=== PATIENT | female | born 2005 | race Two or more races ===

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

== ENCOUNTER 2025-02-12 21:06 | Emergency (ER) | payer BC, MEDICAID ==
[~2025-02-12] VITALS: Ht 160 cm; Wt 70.6 kg
--- NOTE | 2025-02-12 22:18 | ED.PDOC ---
History of Present Illness HPI Comments 19 year old female presents to the ED for the c/c of Bilateral Flank pain w/ associated ABD pain, N/, Lower back pain, and Dysuria. Pt states that her pain started 2x weeks ago, and notes of no alleviating factors at this time. Pt states that she was seen at [facility] earlier today, and was given a Rajat ephin, and Toradol shot, but no alleviating factors. No other associated symptoms, modifiers, recent injuries or sick contacts present at this time. Chief Complaint: Flank Pain Time Seen by MD: 22:14 Primary Care Provider: NONE Reviewed Notes: Nurses Notes, Medications, Allergies Allergies: Coded Allergies: Lamotrigine (Verified Allergy, Unknown, 01/05/21) Home Meds Active Scripts Methylprednisolone (Medrol Dosepak) 4 Mg Ramakrishna, 4 MG PO UD, #21 TAB UAD Prov:BELEN HOLCOMB NP 12/10/22 Prednisone (Prednisone) 20 Mg Tab, 20 MG PO BID for 5 Days, #10 TAB 0 Refills Prov:MADDIE RITTER 12/03/22 Information Source: Patient Mode of Arrival: Ambulatory Severity: Moderate Timing: Weeks Duration: Intermittent Prehospital treatment: None Past Medical History PAST MEDICAL HISTORY: Seizures Surgical History: Denies all surgeries BOILERMAKING SUPERVISOR History: No Pertinent BOILERMAKING SUPERVISOR History Family History Family History: Family hx of heart maria fernanda Social History Smoker: Non-Smoker Alcohol: Denies ETOH Use Drugs: Denies Drug Use Lives In: Home Constitutional: denies: chills, diaphoresis, fatigue, fever, malaise, sweats, weakness, others EENTM: denies: blurred vision, double vision, ear bleeding, ear discharge, ear drainage, ear pain, ear ringing, eye pain, eye redness, hearing loss, mouth pain, mouth swelling, nasal discharge, nose bleeding, nose congestion, nose pain, photophobia, tearing, throat pain, throat swelling, voice changes, others Respiratory: denies: cough, hemoptysis, orthopnea, SOB at rest, shortness of breath, SOB with excertion, stridor, wheezing, others Cardiovascular: denies: chest pain, dizzy spells, diaphoresis, Dyspnea on exertion, edema, irregular heart beat, left arm pain, lightheadedness, palpit ations, PND, syncope, others Gastrointestinal: reports: nausea; denies: abdomen distended, abdominal pain, blood streaked bowels, constipated, diarrhea, dysphagia, difficulty swallowing, hematemesis, melena, poor appetite, poor fluid intake, rectal bleeding, rectal pain, vomiting, others Genitourinary: reports: dysuria, flank pain; denies: abnormal vagina bleeding, burning, dyspareunia, frequency, hematuria, incontinence, pain, , vagina discharge, urgency, others Neurological: denies: dizziness, fainting, headache, left sided numbness, left sided weakness, numbness, paresthesia, pre-existing deficit, right sided numbness, right sided weakness, seizure, speech problems, tingling, tremors, weakness, others Musculoskeletal: denies: back pain, gout, joint pain, joint swelling, muscle pain, muscle stiffness, neck pain, others Integumetry: denies: bruises, change in color, change in hair/nails, dryness, laceration, lesions, lumps, rash, wounds, others Allergic/Immunocompromised: denies: Difficulty Healing, Frequent Infections, Hives, Itching, others Hematologic/Lymphatic: denies: anemia, blood clots, easy bleeding, easy bruising, swollen glands, others Endocrine: denies: excessive hunger, excessive sweating, excessive thirst, excessive urination, flushing, intolerance to cold, intolerance to heat, unexplained weight gain, unexplained weight loss, others Psychiatric: denies: anxiety, bipolar disorder, depression, hopeless, panic disorder, schizophrenia, sleepless, suicidal, others All Other Systems: Reviewed and Negative Physical Exam General Appearance: Moderate Distress ([id number] distress due to flank pain concerns. Patient declined any pain medication while at the facility.), Normal HEENT: Normal ENT Inspection, Pharynx Normal, TMs Normal Neck: Full Range of Motion, Non-Tender, Normal, Normal Inspection Respiratory: Chest Non-Tender, Lungs Clear, No Accessory Muscle Use, No R espiratory Distress, Normal Breath Sounds Cardiovascular: No Edema, No JVD, No Murmur, No Gallop, Normal Peripheral Pulses, Regular Rate/Rhythm Breast Exam: Deferred Gastrointestinal: No Pulsatile Mass, Normal Bowel Sounds, Soft, Other (Bilateral CVA tenderness noted. No signs of trauma. Pain radiates into the bilateral lower abdomen.) Genitalia: Deferred Pelvic: Deferred Rectal: Deferred Extremities: No calf tenderness, Normal capillary refill, Normal inspection, Normal range of motion, Non-tender, No pedal edema Musculoskeletal : Apperance: Normal Neurologic: Alert, No Motor Deficits, Normal Affect, Normal Mood, No Sensory Deficits Cerebellar Function: Normal Reflexes: Normal Skin: Dry, Normal Color, Warm Lymphatic: No Adenopathy Was a procedure done? Was a procedure done?: No Differential Dx Considerations may include: UTI, pyelonephritis, kidney stone, musculoskeletal pain X-Ray, Labs, Meds, VS Vital Signs Date Time Temp Pulse Resp B/P (MAP) Pulse Ox O2 Delivery O2 Flow Rate FiO2 02/12/25 22:30 69 18 96 Room Air* 0 21 02/12/25 22:08 99.1 83 18 104/78 (87) 97 99.1 Lab Test 02/12/25 22:06 Range/Units Urine Color Yellow Yellow Urine Clarity Turbid H Clear Urine pH 6.0 5.0-9.0 Urine Specific [place] 1.018 1.001-1.035 Urine Protein Negative Negative Urine Ketones Negative Negative Urine Blood Negative Negative /uL Urine Nitrite Negative Negative Urine Bilirubin Negative Negative Urine Urobilinogen Normal Negative mg/dL Urine Leukocyte Esterase 3+ Negative /uL Urine RBC 3 0 - 4 /hpf Urine Microscopic WBC 22 H 0-5 /HPF Urine Squamous Epithelial Cells Mod <5 /hpf Urine Bacteria Few H None Seen /hpf Urine Hyaline Casts Few 0 - 2 /lpf Urine Glucose Normal Normal mg/dL Urine Test Negative Negative Current Medications Medications (Trade) Dose Ordered Sig/Migue Route Start Time Stop Time Status Last Admin Phenazopyridine HCl (Pyridium Tablet) 100 mg ONCE ONCE PO 02/12/25 22:15 02/12/25 22:17 DC 02/12/25 22:28 X-Ray, Labs, Meds, VS Comment All studies performed the ED were evaluated by me personally. Urinalysis confirmed a urinary tract infection. Patient was given 1st dose of antibiotics prior to discharge. Advised patient utilize antibiotics as directed until completion as well as good hydration and healthy nutrition throughout illness event. Time of 1ST Reevaluation: 23:41 Reevaluation 1ST: Improved Consultation: PCP Patient Education/Counseling: Diagnosis, Treatment, Need For Follow Up Family Education/Counseling: Diagnosis, Treatment, No Family Present SEPSIS Sepsis Screen Date sepsis recognized/suspect: Feb 12, 2025 Time Sepsis recognized/suspect: 2207 Recent Procedure: No On Antibiotic Therapy: No Respiratory Rate >20: No Heart Rate >90: No Temp<36 C (96.8 F) or >38.3 C: No SBP <90 or MAP <65 mmHG: No New Acute Mental Status Change: No Is the patient on CPAP, BIPAP,: No Physician Orders Nitrofurantoin Capsule (Macrobid) (02/12/25 23:45) Vital Signs Date Time Temp Pulse Resp B/P (MAP) Pulse Ox O2 Delivery O2 Flow Rate FiO2 02/12/25 22:30 69 18 96 Room Air* 0 21 02/12/25 22:08 99.1 83 18 104/78 (87) 97 99.1 Medications Medications Dose Ordered Sig/Migue Route Start Time Stop Time Status Last Admin Dose Admin Phenazopyridine HCl 100 mg ONCE ONCE PO 02/12/25 22:15 02/12/25 22:17 DC 02/12/25 22:28 Departure 1 Departure Time of Disposition: 23:41 Impression: Primary Impression: UTI (urinary tract infection) Disposition: HOME / SELF CARE / HOMELESS Condition: Stable Additional Instructions: Advise utilizing antibiotics as directed until completion. Additional medication as needed. Good hydration advised throughout. e-Prescriptions Ibuprofen (Ibuprofen) 600 Mg Tab 1 TAB PO Q6HP PRN, #20 TAB Prov: DIANA RAYO PAC 02/12/25 Nitrofurantoin Monohydrate Mac (Macrobid) 100 Mg Cap 100 MG PO BID for 7 Days, #14 CAP Prov: DIANA RAYO PAC 02/12/25 Discharged With: Self, Friend Critical Care Note Critical Care Time?: No Stability Stability form required: No Heart Score Heart Score: Heart Score Response (Comments) Value History N/A 0 EKG N/A 0 Age N/A 0 Risk Factors N/A 0 Troponin N/A 0 Total 0 I personally scribed for DIANA RAYO PAC ([email or web address]) on 02/12/25 at 22:18. Electronically submitted by Dawson Bryant ([email or web address]). DIANA RAYO PAC Feb 12, 2025 22:18
[2025-02-12] MEDS: PHENAZOPYRIDINE HCL 100 MG TAB PO ONE (22:28)
[2025-02-12 22:30] VITALS: PULSE 69; RESP 18; O2SAT 96
[2025-02-12 23:03] LABS: Urine Protein, UAD Negative (Negative)
[2025-02-12] MEDS ORDERED: IBUP-1454 PO (23:42)
[2025-02-12] MEDS ORDERED: NITR-87 PO (23:42)
[2025-02-13 00:03] VITALS: BP 104/78; PULSE 83; RESP 18; TEMP 99.1; O2SAT 97
== END 2025-02-13 00:22 | disposition home or self-care (01) ==
LOC: ER 21:06
DX: N39.0 Urinary tract infection, site not specified (principal); Z79.52 Long term (current) use of systemic steroids; Z88.8 Allergy status to other drugs, medicaments and biological substances
CPT/HCPCS: 81001; 81025

== ENCOUNTER 2025-05-02 18:35 | Emergency (ER) | payer BC, MEDICAID ==
[~2025-05-02] VITALS: Ht 160 cm; Wt 67.9 kg
[~2025-05-02 18:35] MED LIST changes: +IBUP-1454 PO; +NITR-87 PO
[2025-05-02 18:37] VITALS: BP 128/82; PULSE 110; RESP 18; TEMP 98.1; O2SAT 96
[2025-05-02 19:09] LABS: Hematocrit 40.2 % (36.0-46.0); Hemoglobin 13.4 g/dL (12.2-16.2); Mean Corpuscular Hemoglobin 29.7 pg (28.0-32.0); Mean Corpuscular Volume 88.9 fL (80.0-100.0); Nucleated Red Blood Cells % 0.0 %
--- NOTE | 2025-05-02 19:14 | ED.PDOC ---
History of Present Illness HPI Comments 19-year-old female who came to ER for syncope. Patient denies any medical problems. Patient unsure if she is . She was just standing up when she felt dizzy and she passed out. Denies any chest pains or shortness a breath. Patient had prior history of syncopal attacks Chief Complaint: Syncope Time Seen by MD: 19:13 Primary Care Provider: NONE Reviewed Notes: Nurses Notes Allergies: Coded Allergies: Lamotrigine (Verified Allergy, Unknown, 01/05/21) Home Meds Active Scripts Ibuprofen (Ibuprofen) 600 Mg Tab, 1 TAB PO Q6HP PRN, #20 TAB Prov:DIANA RAYO PAC 02/12/25 Nitrofurantoin Monohydrate Mac (Macrobid) 100 Mg Cap, 100 MG PO BID for 7 Days, #14 CAP Prov:DIANA RAYO PAC 02/12/25 Methylprednisolone (Medrol Dosepak) 4 Mg Ramakrishna, 4 MG PO UD, #21 TAB UAD Prov:BELEN HOLCOMB NP 12/10/22 Prednisone (Prednisone) 20 Mg Tab, 20 MG PO BID for 5 Days, #10 TAB 0 Refills Prov:MADDIE RITTER 12/03/22 Information Source: Patient Mode of Arrival: Ambulatory Severity: Moderate Timing: Minutes Duration: Minutes Past Medical History PAST MEDICAL HISTORY: Denies Surgical History: Denies all surgeries BEHAVIOR SUPPORT SPECIALIST History: No Pertinent BEHAVIOR SUPPORT SPECIALIST History Family History Family History: Family hx of heart maria fernanda Social History Smoker: Non-Smoker Alcohol: Denies ETOH Use Drugs: Denies Drug Use Lives In: Home Physical Exam General Appearance: No Apparent Distress, Normal HEENT: Normal ENT Inspection, Pharynx Normal, TMs Normal Neck: Full Range of Motion, Non-Tender, Normal, Normal Inspection Respiratory: Chest Non-Tender, Lungs Clear, No Accessory Muscle Use, No Respiratory Distress, Normal Breath Sounds Cardiovascular: No Edema, No JVD, No Murmur, No Gallop, Normal Peripheral Pulses, Regular Rate/Rhythm Breast Exam: Deferred Gastrointestinal: No Organomegaly, Non Tender, No Pulsatile Mass, Normal Bowel Sounds, Soft Genitalia: Deferred Pelvic: Deferred Rectal: Deferred Extremities: No calf tenderness, Normal capillary refill, Normal inspection, Normal range of motion, Non-tender, No pedal edema Musculoskeletal : Apperance: Normal Neurologic: Alert, insulator cutter and former II-XII nml as Tested, No Motor Deficits, Normal Affect, Normal Mood, No Sensory Deficits Cerebellar Function: Normal Reflexes: Normal Skin: Dry, Normal Color, Warm Lymphatic: No Adenopathy Was a procedure done? Was a procedure done?: No Differential Dx Considerations may include: ACS, CVA, , UTI, X-Ray, Labs, Meds, VS Vital Signs Date Time Temp Pulse Resp B/P (MAP) Pulse Ox O2 Delivery O2 Flow Rate FiO2 05/02/25 18:37 98.1 110 18 128/82 96 98.1 Lab Test 05/02/25 19:45 05/02/25 19:30 05/02/25 18:54 Range/Units Troponin I High Sensitivity 3 L < 3 L </=34 ng/L Urine Color Light-yellow Yellow Urine Clarity Clear Clear Urine pH 6.0 5.0-9.0 Urine Specific [place] 1.012 1.001-1.035 Urine Protein Negative Negative Urine Ketones Negative Negative Urine Blood Negative Negative /uL Urine Nitrite Negative Negative Urine Bilirubin Negative Negative Urine Urobilinogen Normal Negative mg/dL Urine Leukocyte Esterase 3+ Negative /uL Urine RBC 4 0 - 4 /hpf Urine Microscopic WBC 11 H 0-5 /HPF Urine Squamous Epithelial Cells Few <5 /hpf Urine Bacteria None seen None Seen /hpf Urine Glucose Normal Normal mg/dL Urine Test Positive Negative White Blood Count 10.6 4.4-10.8 10^3/uL Red Blood Count 4.52 4.0-5.20 10^6/uL Hemoglobin 13.4 12.2-16.2 g/dL Hematocrit 40.2 36.0-46.0 % Mean Corpuscular Volume 88.9 80.0-100.0 fL Mean Corpuscular Hemoglobin 29.7 28.0-32.0 pg Mean Corpuscular Hemoglobin Concent 33.4 32.0-36.0 g/dL Red Cell Distribution Width 12.1 11.8-14.3 % Platelet Count 371 140-450 10^3/uL Mean Platelet Volume 7.8 6.9-10.8 fL Neutrophils (%) (Auto) 76.5 37.0-80.0 % Lymphocytes (%) (Auto) 16.3 10.0-50.0 % Monocytes (%) (Auto) 5.9 0.0-12.0 % Eosinophils (%) (Auto) 0.5 0.0-7.0 % Basophils (%) (Auto) 0.8 0.0-2.0 % Neutrophils # (Auto) 8.1 1.6-8.6 10 ^3/uL Lymphocytes # (Auto) 1.7 0.4-5.4 10 ^3/uL Monocytes # (Auto) 0.6 0-1.3 10 ^3/uL Eosinophils # (Auto) 0 0-0.8 10 ^3/uL Basophils # (Auto) 0.1 0-0.2 10 ^3/uL Nucleated Red Blood Cells 0.0 % Sodium Level 139 136-145 mmol/L Potassium Level 4.2 3.5-5.1 mmol/L Chloride Level 103 98-107 mmol/L Carbon Dioxide Level 25 20-31 mmol/L Anion Gap 11 5-15 Blood Urea Nitrogen 8 L 9-23 mg/dL Creatinine 0.89 0.550-1.02 mg/dL Glomerular Filtration Rate Calc 96 >90 mL/min BUN/Creatinine Ratio 9.0 L 10.0-20.0 Serum Glucose 72 L 74-106 mg/dL Calcium Level 9.6 8.7-10.4 mg/dL Beta HCG, Quantitative 77864.5 H 1.5-4.2 mIU/mL Time of 1ST Reevaluation: 23:03 Reevaluation 1ST: Unchanged Patient Education/Counseling: Other (Patient eloped) Family Education/Counseling: No Family Present SEPSIS Sepsis Screen Date sepsis recognized/suspect: May 02, 2025 Time Sepsis recognized/suspect: 183 Recent Procedure: No On Antibiotic Therapy: No Respiratory Rate >20: No Heart Rate >90: Yes Temp<36 C (96.8 F) or >38.3 C: No SBP <90 or MAP <65 mmHG: No New Acute Mental Status Change: No Is the patient on CPAP, BIPAP,: No Physician Orders Electrocardigram (05/02/25 18:44) Electrocardigram (05/02/25 19:44) Electrocardigram (05/02/25 21:44) Vital Signs Date Time Temp Pulse Resp B/P (MAP) Pulse Ox O2 Delivery O2 Flow Rate FiO2 05/02/25 18:37 98.1 110 18 128/82 96 98.1 Laboratory Tests Test 05/02/25 18:54 White Blood Count 10.6 10^3/uL (4.4-10.8) Departure 1 Departure Time of Disposition: 23:02 (Patient is . Patient eloped prior to workup completion) Impression: Primary Impression: Additional Impression: Syncope and collapse Disposition: 07 LEFT AWOL/ELOPED Condition: Serious Critical Care Note Critical Care Time?: No Stability Stability form required: No I personally scribed for DARRELL GOMEZ MD ([email or web address]) on 05/02/25 at 19:14. Electronically submitted by Juan Fritz ([facility]). DARRELL GOMEZ MD May 02, 2025 19:14
[2025-05-02 19:42] LABS: Anion Gap 11 (5-15); Calcium 9.6 mg/dL (8.7-10.4); Carbon Dioxide 25 mmol/L (20-31); Chloride 103 mmol/L (98-107); Potassium 4.2 mmol/L (3.5-5.1); Sodium 139 mmol/L (136-145)
[2025-05-02 19:48] LABS: BUN/Creatinine Ratio 9.0 (10.0-20.0)
[2025-05-02 19:49] LABS: Blood Urea Nitrogen 8 mg/dL (9-23); Glucose 72 mg/dL (74-106)
[2025-05-02 20:04] LABS: Urine Protein, UAD Negative (Negative)
== END 2025-05-02 23:05 | disposition left against medical advice (07) ==
LOC: EEVIPCON 18:35 → ER 18:35
DX: Z34.90 Encounter for supervision of normal pregnancy, unspecified, unspecified trimester (principal); R55 Syncope and collapse; Z79.52 Long term (current) use of systemic steroids; Z79.899 Other long term (current) drug therapy; Z3A.01 Less than 8 weeks gestation of pregnancy
CPT/HCPCS: 36415; 80048; 81001; 81025; 84484; 84702; 85025

== ENCOUNTER 2025-05-12 09:54 | Outpatient (CLI) | payer BC, MEDICAID ==
[2025-05-12 11:01] LABS: Hematocrit 39.1 % (36.0-46.0); Hemoglobin 13.0 g/dL (12.2-16.2); Mean Corpuscular Hemoglobin 29.4 pg (28.0-32.0); Mean Corpuscular Volume 88.1 fL (80.0-100.0); Nucleated Red Blood Cells % 0.0 %
[2025-05-12 11:36] LABS: Thyroid Stimulating Hormone 1.38 uIU/mL (0.55-4.78)
[2025-05-12 11:46] LABS: Beta HCG, Quantitative 112654.3 mIU/mL (1.5-4.2)
[2025-05-12 12:08] LABS: Amphetamine Screen, Urine Neg (NEGATIVE); Barbiturate Scree,Urine Neg (NEGATIVE); Benzodiazephine Screen, Urine Neg (NEGATIVE); Cannabinoid Screen, Urine Neg (NEGATIVE); Cocaine Screen, Urine Neg (NEGATIVE); Opiate Scree,Urine Neg (NEGATIVE); Phencyclidine Screen, Urine Neg (NEGATIVE)
[2025-05-14 05:08] LABS: Chlamydia Trachomatis, NAA Negative (Negative); Neisseria gonorrhoeae, NAA Negative (Negative)
== END 2025-05-12 17:00 | disposition home or self-care (01) ==
LOC: LAB 09:54
PROVIDERS: ATTEND Obstetrics & Gynecology
DX: Z11.3 Encounter for screening for infections with a predominantly sexual mode of transmission (principal); O23.40 Unspecified infection of urinary tract in pregnancy, unspecified trimester; Z31.430 Encounter of female for testing for genetic disease carrier status for procreative management; Z3A.00 Weeks of gestation of pregnancy not specified; Z79.899 Other long term (current) drug therapy
CPT/HCPCS: 36415; 80307; 83036; 84144; 84443; 84702; 85025; 86703; 86765; 86780; 86787; 86850; 86900; 86901; 87086; 87340

== ENCOUNTER 2025-07-11 19:38 | Inpatient (IN) | payer BC, MEDICAID ==
[~2025-07-11] VITALS: Ht 160 cm; Wt 64.4 kg
[2025-07-11 20:07] LABS: Hematocrit 37.6 % (36.0-46.0); Hemoglobin 12.4 g/dL (12.2-16.2); Mean Corpuscular Hemoglobin 29.1 pg (28.0-32.0); Mean Corpuscular Volume 88.1 fL (80.0-100.0); Nucleated Red Blood Cells % 0.0 %
[2025-07-11 20:24] LABS: Alanine Aminotransferase 15 U/L (7-40); Albumin 4.3 g/dL (3.2-4.8); Alkaline Phosphatase 45 U/L (46-116); Anion Gap 6 (5-15); BUN/Creatinine Ratio 6.3 (10.0-20.0); Bilirubin, Total 0.4 mg/dL (0.2-1.0); Blood Urea Nitrogen < 5 mg/dL (9-23); Calcium 9.6 mg/dL (8.7-10.4); Carbon Dioxide 26 mmol/L (20-31); Chloride 107 mmol/L (98-107); Glucose 82 mg/dL (74-106); Potassium 3.7 mmol/L (3.5-5.1); Sodium 139 mmol/L (136-145); Total Protein 7.2 g/dL (5.7-8.2)
--- NOTE | 2025-07-11 20:50 | DVH ---
OB ULTRASOUND, LIMITED CLINICAL INDICATION: vag spotting, pain TECHNIQUE: Multiple grayscale ultrasound and M-mode images were obtained of the pelvis for evaluation of intrauterine . COMPARISON: None FINDINGS: A single living fetus is seen in breech presentation. Biparietal diameter: 3.14 cm (15 weeks, 6 days) Head Circumference: 11.91 cm (15 weeks, 6 days) Abdomen Circumference: 10.15 cm (16 weeks, 1 days) Femur Length: 1.9 cm (15 weeks, 4 days) Estimated weight: 138 grams (+/- 21 grams). Placenta: Posterior. Amniotic fluid: Visibly normal. heart rate: 161 beats/min. A complete anatomic survey was not performed on this exam. Cervix is 2.2 cm and closed. IMPRESSION: 1. Single living intrauterine with an estimated gestational age of 15 weeks, 6 days, corresponding to an estimated date of delivery of 12/27/2025.
--- NOTE | 2025-07-11 20:54 | ED.PDOC ---
TEACHER ADULT EDUCATION HPI Comments 19-year-old female presents to the ED for chief complaint pelvic pain that is intermittent. Patient describes pain as a cramping sensation that worsens at night and is unable to sleep due to increased pain then. Additionally, patient reports that she has experienced some brown vaginal discharge but denies any bright red or blood clot discharge. Besides the symptoms, patient reports an ongoing history of fainting episodes even prior to becoming in which she sees at [facility] about 3 times a week. She denies any recent fainting she states that she is able to easily catch herself before fainting. She denies any recent trauma, fever, chills, nausea, vomiting. She has a history of STDs many years ago but states recently got tested for them and states results came back negative. Patient also said she is having multiple syncopal episodes even prior to her that has never been worked up. She is not really bleeding but she has some brown discharge occasionally. Past medical history: Thalassemia, seizures, autoimmune disease. Past surgical history: Denies Allergies: Lamotrigine valencia: preg cramps, fainting normal exam. HPI: Poor Historian. Past Medical History: Past Surgical History: REVIEW OF SYSTEMS: CONSTITUTIONAL: Denies acute: fever, diaphoresis, chills, generalized weakness. HEAD: Denies acute: headache, photophobia Eyes: Denies acute: Double vision, vision loss, eye pain, eye discharge. EARS: Denies acute: tinnitus, hearing loss, ear discharge, ear pain, THROAT: Denies acute: sore throat, swelling, difficulty swallowing , pain with s wallowing, change in voice. NECK: Denies acute: neck pain, neck swelling, stiff neck. HEART: Denies acute : chest pain, palpitations, LUNGS: Denies acute: SOB, wheezing, cough, hemoptysis ABDOMEN: Denies acute: Nausea, Vomiting, diarrhea, melena , hematemesis, hematochezia SKIN: Denies acute: rash, redness, lesions, itchiness. EXTREMITIES: Denies acute: calf pain, numbness, tingling, weakness, denies pain in extremity. Denies acute: Low back pain. Neuro: Denies acute: focal neurological deficit, motor or sensory focal neurological deficit, tremors, seizure like activity, confusion, change in mental status, loss of bowel or bladder function, cauda equina like symptoms. : Denies acute: dysuria, hematuria, flank pain, increase in urinary frequency. PSYCH: Denies acute: hallucination, suicidal ideation, homicidal ideation. FEMALE: Denies acute: abnormal vaginal bleeding, foul odor, unusual discharge. PHYSICAL EXAM: General: ----no---acute distress, awake and alert. Head: normocephalic, atraumatic. No raccoon's eyes, no larose sign. Neck: supple, trachea is midline, no swelling. Throat: Normal phonation. Eyes:, no erythema, no purulent discharge, no proptosis, no icterus. Heart: regular rate, regular rhythm, no significant murmur appreciated. Lungs: no apparent respiratory distress, Able to speak in full sentences. No wheezing, no rhonchi, no crackles. No stridors Clear to auscultation bilaterally. Abdomen: non tender to palpation, gravid abdomen soft, no guarding, no rebound, + bowel sounds. Neuro: Awake, Alert, oriented to name, self, situation, follows commands GCS=15. Speech is normal. Skin: no petechia, no purpura, no cyanosis, non-pale, not jaundice. Lower extremities: --no - Pitting edema no deformity, no focal swelling, no calf TTP. Makes eye contact. moves all four extremities. Face: no apparent facial droop. . Ambulating in the ED independently. No nuchal rigidity, Kernig's sign, Brudzinski's sign, no meningeal signs. ED COURSE: DISCLAIMER: This medical document was created using an electronic medical record system with voice recognition software and computerized dictation system. Although this document has been carefully reviewed, there might still be some phonetic and typographical errors. Occasional wrong-word or "sound-alike" substitutions may have occurred due to the inherent limitations of voice recognition software. These areas are purely typographical due to imperfections of the software programs and do not reflect any compromise in the patient's medical care. Please read the chart carefully and recognize, using context, where these substitutions have occurred. Chief Complaint: Abdominal Pain Time Seen by MD: 20:32 Reviewed Notes: Medications, Allergies Allergies: Coded Allergies: Lamotrigine (Verified Allergy, Unknown, 01/05/21) Home Meds Active Scripts Ibuprofen (Ibuprofen) 600 Mg Tab, 1 TAB PO Q6HP PRN, #20 TAB Prov:DIANA RAYO PAC 02/12/25 Nitrofurantoin Monohydrate Mac (Macrobid) 100 Mg Cap, 100 MG PO BID for 7 Days, #14 CAP Prov:DIANA RAYO PAC 02/12/25 Methylprednisolone (Medrol Dosepak) 4 Mg Ramakrishna, 4 MG PO UD, #21 TAB UAD Prov:BELEN HOLCOMB CHILDREN COUNSELOR 12/10/22 Prednisone (Prednisone) 20 Mg Tab, 20 MG PO BID for 5 Days, #10 TAB 0 Refills Prov:MADDIE RITTER 12/03/22 Information Source: Patient Mode of Arrival: Ambulatory Was a procedure done? Was a procedure done?: No Differential Diagnosis (WASTE MACHINE OPERATOR) Vaginal Bleeding: - Complete, - Incomplete, - Inevitable, - Missed, - Threatened, Abruptio Placentae, Blood Loss Anemia, Cervicitis X-Ray, Labs, Meds, VS Vital Signs Date Time Temp Pulse Resp B/P (MAP) Pulse Ox O2 Delivery O2 Flow Rate FiO2 07/11/25 19:39 97.8 121 18 115/70 98 97.8 Lab Test 07/11/25 19:55 Range/Units White Blood Count 9.2 4.4-10.8 10^3/uL Red Blood Count 4.27 4.0-5.20 10^6/uL Hemoglobin 12.4 12.2-16.2 g/dL Hematocrit 37.6 36.0-46.0 % Mean Corpuscular Volume 88.1 80.0-100.0 fL Mean Corpuscular Hemoglobin 29.1 28.0-32.0 pg Mean Corpuscular Hemoglobin Concent 33.1 32.0-36.0 g/dL Red Cell Distribution Width 12.6 11.8-14.3 % Platelet Count 317 140-450 10^3/uL Mean Platelet Volume 7.9 6.9-10.8 fL Neutrophils (%) (Auto) 76.6 37.0-80.0 % Lymphocytes (%) (Auto) 16.0 10.0-50.0 % Monocytes (%) (Auto) 6.0 0.0-12.0 % Eosinophils (%) (Auto) 0.6 0.0-7.0 % Basophils (%) (Auto) 0.8 0.0-2.0 % Neutrophils # (Auto) 7.1 1.6-8.6 10 ^3/uL Lymphocytes # (Auto) 1.5 0.4-5.4 10 ^3/uL Monocytes # (Auto) 0.6 0-1.3 10 ^3/uL Eosinophils # (Auto) 0.1 0-0.8 10 ^3/uL Basophils # (Auto) 0.1 0-0.2 10 ^3/uL Nucleated Red Blood Cells 0.0 % Sodium Level 139 136-145 mmol/L Potassium Level 3.7 3.5-5.1 mmol/L Chloride Level 107 98-107 mmol/L Carbon Dioxide Level 26 20-31 mmol/L Anion Gap 6 5-15 Blood Urea Nitrogen < 5 L 9-23 mg/dL Creatinine 0.80 0.550-1.02 mg/dL Glomerular Filtration Rate Calc 109 >90 mL/min BUN/Creatinine Ratio 6.3 L 10.0-20.0 Serum Glucose 82 74-106 mg/dL Calcium Level 9.6 8.7-10.4 mg/dL Total Bilirubin 0.4 0.2-1.0 mg/dL Aspartate Amino Transferase (AST) 19 13-40 U/L Alanine Aminotransferase (ALT) 15 7-40 U/L Alkaline Phosphatase 45 L 46-116 U/L Total Protein 7.2 5.7-8.2 g/dL Albumin 4.3 3.2-4.8 g/dL Time of 1ST Reevaluation: 21:00 Reevaluation 1ST: Unchanged Patient Education/Counseling: Diagnosis, Treatment Family Education/Counseling: No Family Present Departure 1 Departure Time of Disposition: 22:03 Impression: Primary Impression: Syncope and collapse Additional Impression: Intrauterine Disposition: 09 ADMITTED INPATIENT Admit to: Tele Condition: Guarded Discharged With: Self Critical Care Note Critical Care Time?: No I personally scribed for ELISA LONG DO (DVFARMI) on 07/11/25 at 20:54. Electronically submitted by Melissa Davey ([facility]). ELISA LONG DO Jul 11, 2025 20:54
[2025-07-11 22:20] LABS: Urine Budding Yeast OCCASIONAL /hpf (None Seen); Urine Protein, UAD TRACE (Negative)
[2025-07-12] VITALS (7 sets, daily range): BP systolic 94–114; BP diastolic 64–75; PULSE 67–97; RESP 16–19; TEMP 97.5–98.8; O2SAT 99–100
[2025-07-12] MEDS: METRONIDAZOLE VAGINAL PV SCH (00:44)
[2025-07-12] MEDS: SODIUM CHLORIDE 0.9% 1,000 ML IV SCH (00:47)
--- NOTE | 2025-07-12 00:51 | DVHHP2 ---
History of Present Illness History of Present Illness 19-year-old female, at 15 weeks 6 days gestation, with PMHx of alpha thalassemia and seizure disorder, presenting with one day of lower abdominal cramping pain. Pain described as intermittent cramping. She reports brown vaginal discharge without foul odor. She denies vaginal bleeding, leakage of fluid, fever, chills, nausea, vomiting, dysuria, or hematuria. was known, however patient has not established routine care. History of prior sexually transmitted infection, recently treated. No prior complications. Not taking any medications. Presented with her mother. PMHx: Alpha thalassemia, seizure disorder, autoimmune disease (unspecified) PSHx: Denies Medications: None Allergies: Lamotrigine Social History: Lives with family, accompanied by mother, denies tobacco, alcohol, or illicit drug use ROS: Positive for lower abdominal pain and vaginal discharge. Otherwise negative. CBC: WBC within normal limits, Hgb 12.4 g/dL, platelets within normal limits CMP: within normal limits Urinalysis: positive leukocyte esterase, WBC present, RBC 6/hpf, few bacteria Ultrasound: single live intrauterine , estimated gestational age 15 weeks 6 days / infectious labs (05/12/2025): treponema pallidum Ab negative, chlamydia negative, gonorrhea negative, HIV negative, hepatitis B surface antigen negative, rubella IgG positive, varicella IgG non-reactive Review of Systems Allergies: Coded Allergies: Lamotrigine (Verified Allergy, Unknown, 01/05/21) Medications Current Medications Medications Dose Ordered Sig/Migue Route Start Time Stop Time Status Last Admin Dose Admin Sodium Chloride 1,000 ml @ 60 mls/hr [id number] IV 07/11/25 22:45 Ceftriaxone Sodium 50 ml @ 100 mls/hr DAILY@09 IV 07/11/25 22:45 Metronidazole 1 applic HS PV 07/11/25 22:45 Exam Vital Signs Vital Signs Date Time Temp Pulse Resp B/P (MAP) Pulse Ox O2 Delivery O2 Flow Rate FiO2 07/12/25 00:00 98.3 87 16 112/74 (87) 100 98.3 Exam Vitals: tachycardic, BP 110/75, afebrile, SpO2 normal General: alert, no acute distress CV: tachycardic, regular rhythm Pulm: clear to auscultation bilaterally Abdomen: soft, mild suprapubic tenderness, no rebound or guarding Neuro: alert and oriented, no focal deficits Labs/Xrays Labs Test 07/11/25 20:43 07/11/25 19:55 Range/Units Urine Color Colorless Yellow Urine Clarity Turbid H Clear Urine pH 7.0 5.0-9.[address] [place] 1.021 1.001-1.035 Urine Protein Trace H Negative Urine Ketones Negative Negative Urine Blood Negative Negative /uL Urine Nitrite Negative Negative Urine Bilirubin Negative Negative Urine Urobilinogen Normal Negative mg/dL Urine Leukocyte Esterase 3+ Negative /uL Urine RBC 6 0 - 4 /hpf Urine Microscopic WBC 10 H 0-5 /HPF Urine Squamous Epithelial Cells Mod <5 /hpf Urine Bacteria Few H None Seen /hpf Urine Mucus Few None Seen Urine Yeast (Budding) Occasional None Seen /hpf Urine Glucose Normal Normal mg/dL White Blood Count 9.2 4.4-10.8 10^3/uL Red Blood Count 4.27 4.0-5.20 10^6/uL Hemoglobin 12.4 12.2-16.2 g/dL Hematocrit 37.6 36.0-46.0 % Mean Corpuscular Volume 88.1 80.0-100.0 fL Mean Corpuscular Hemoglobin 29.1 28.0-32.0 pg Mean Corpuscular Hemoglobin Concent 33.1 32.0-36.0 g/dL Red Cell Distribution Width 12.6 11.8-14.3 % Platelet Count 317 140-450 10^3/uL Mean Platelet Volume 7.9 6.9-10.8 fL Neutrophils (%) (Auto) 76.6 37.0-80.0 % Lymphocytes (%) (Auto) 16.0 10.0-50.0 % Monocytes (%) (Auto) 6.0 0.0-12.0 % Eosinophils (%) (Auto) 0.6 0.0-7.0 % Basophils (%) (Auto) 0.8 0.0-2.0 % Neutrophils # (Auto) 7.1 1.6-8.6 10 ^3/uL Lymphocytes # (Auto) 1.5 0.4-5.4 10 ^3/uL Monocytes # (Auto) 0.6 0-1.3 10 ^3/uL Eosinophils # (Auto) 0.1 0-0.8 10 ^3/uL Basophils # (Auto) 0.1 0-0.2 10 ^3/uL Nucleated Red Blood Cells 0.0 % Sodium Level 139 136-145 mmol/L Potassium Level 3.7 3.5-5.1 mmol/L Chloride Level 107 98-107 mmol/L Carbon Dioxide Level 26 20-31 mmol/L Anion Gap 6 5-15 Blood Urea Nitrogen < 5 L 9-23 mg/dL Creatinine 0.80 0.550-1.02 mg/dL Glomerular Filtration Rate Calc 109 >90 mL/min BUN/Creatinine Ratio 6.3 L 10.0-20.0 Serum Glucose 82 74-106 mg/dL Calcium Level 9.6 8.7-10.4 mg/dL Total Bilirubin 0.4 0.2-1.0 mg/dL Aspartate Amino Transferase (AST) 19 13-40 U/L Alanine Aminotransferase (ALT) 15 7-40 U/L Alkaline Phosphatase 45 L 46-116 U/L Total Protein 7.2 5.7-8.2 g/dL Albumin 4.3 3.2-4.8 g/dL SEPSIS Sepsis Screen Date sepsis recognized/suspect: Jul 11, 2025 Time Sepsis recognized/suspect: 1941 Recent Procedure: No On Antibiotic Therapy: No Respiratory Rate >20: No Heart Rate >90: No Temp<36 C (96.8 F) or >38.3 C: No SBP <90 or MAP <65 mmHG: No New Acute Mental Status Change: No Is the patient on CPAP, BIPAP,: No Physician Orders Marine Service Manager (07/11/25 ) Ob Ultrasound Comp Gtr 14 Wks (07/11/25 19:48) Admit (07/11/25 22:33) Code Status (07/11/25 22:33) Vital Signs .PER UNIT PROTOCOL (07/11/25 22:33) Review Orders With Adm. (07/11/25 22:33) Regular Diet (07/12/25 Breakfast) Sodium Chloride 0.9% (07/11/25 22:45) Notify Md Of Changes From Base (07/11/25 22:33) Advance Directive (07/11/25 22:33) Blood Culture (07/11/25 22:33) Urine Bacterial Culture (07/11/25 22:33) Patient Condition (07/11/25 22:33) Allergies (12/20/25 22:33) Oxygen By Nasal Cannula (07/11/25 22:33) Stat Ekg For Chest Pain (07/11/25 22:33) Notify Md Of Changes From Base (07/11/25 22:33) Wine Sales Representative For 24 Hours (07/11/25 22:33) Emergency Dysrhythmia Protocol (07/11/25 22:33) Rhythm Strips Once Every Shift (07/11/25 22:33) Ceftriaxone 1gm/50ml (Rocephin) (07/11/25 22:45) Metronidazole Vaginal (Metrogel Vaginal) (07/11/25 22:45) * General Utility Maintenance Repairer Consultation (07/11/25 22:37) Acetaminophen Tablet (Tylenol Tablet) (07/12/25 01:00) Vital Signs Date Time Temp Pulse Resp B/P (MAP) Pulse Ox O2 Delivery O2 Flow Rate FiO2 07/12/25 00:00 98.3 87 16 112/74 (87) 100 98.3 07/11/25 19:39 97.8 121 18 115/70 98 97.8 Laboratory Tests Test 07/11/25 19:55 White Blood Count 9.2 10^3/uL (4.4-10.8) Assessment/Plan Assessment/Plan #Complicated urinary tract infection in Admit for IV -safe antibiotics ceftriaxone IV and IV fluids, follow urine culture and sensitivities, monitor vitals and clinical response, transition to oral antibiotics when appropriate. #Intrauterine at 15 weeks gestation OB-ADMIN SECRETARY consulted, ultrasound confirms viable IUP consistent with dates, counseling specialist on importance of care, arrange outpatient OB follow-up, review labs including varicella non-immunity. #Bacterial vaginosis Continue metronidazole as prescribed. #Seizure disorder Not currently on antiepileptic therapy, monitor clinically during admission, avoid lamotrigine due to allergy, recommend outpatient neurology follow-up. #Alpha thalassemia Hemoglobin stable at 12.4, monitor CBC during admission. #Autoimmune disease, unspecified Diagnosis unclear, recommend outpatient rheumatology follow-up. Case discussed with Dr Reno Full code Plan discussed with: Patient, Other (rn) My Orders Orders - TORI HERNANDEZ Procedure Category Date Status Time Admit ADMIT 07/11/25 Transmitted 22:33 Code Status CODE 07/11/25 Transmitted 22:33 Vital Signs ANDERSON 07/11/25 In Process 22:33 Review Orders With [facility] 07/11/25 In Process Adm. 22:33 Regular Diet DIET 07/12/25 Transmitted Breakfast Sodium Chloride 0.9% PHA 07/11/25 In Process 22:45 Notify Md Of Changes ANDERSON 07/11/25 In Process From Base 22:33 Advance Directive ANDERSON 07/11/25 In Process 22:33 Blood Culture LES 07/11/25 In Process 22:33 Urine Bacterial LES 07/11/25 Logged Culture 22:33 Patient Condition ORDERS 07/11/25 Transmitted 22:33 Allergies ANDERSON 07/11/25 In Process 22:33 Oxygen By Nasal RT 07/11/25 Transmitted Cannula 22:33 Stat Ekg For Chest ANDERSON 07/11/25 In Process Pain 22:33 Notify Md Of Changes ANDERSON 07/11/25 In Process From Base 22:33 Wine Sales Representative For ANDERSON 07/11/25 In Process 24 Hours 22:33 Emergency Dysrhythmia ANDERSON 07/11/25 In Process Protocol 22:33 Rhythm Strips Once ANDERSON 07/11/25 In Process Every Shift 22:33 Ceftriaxone 1gm/50ml PHA 07/11/25 In Process (Rocephin) 22:45 Metronidazole Vaginal PHA 07/11/25 In Process (Metrogel Vaginal) 22:45 * General Utility Maintenance Repairer Consultation CONS 07/11/25 Transmitted 22:37 Acetaminophen Tablet PHA 07/12/25 Verified (Tylenol Tablet) 01:00 Date of Service: Jul 11, 2025 Billing Provider: JOSE DE JESUS RENO MD Common Visit Codes: 75529-[id number] INP/OBS CARE (HIGH) Secondary Visit Codes: [id number] CARE PLAN 30 MINUTES OTRI HERNANDEZ RESIDENT Jul 12, 2025 00:51
[2025-07-12 06:00] LABS: Hematocrit 33.5 % (36.0-46.0); Hemoglobin 11.2 g/dL (12.2-16.2); Mean Corpuscular Hemoglobin 29.4 pg (28.0-32.0); Mean Corpuscular Volume 87.7 fL (80.0-100.0); Nucleated Red Blood Cells % 0.1 %
[2025-07-12 06:23] LABS: Alanine Aminotransferase 12 U/L (7-40); Albumin 3.6 g/dL (3.2-4.8); Bilirubin, Total 0.3 mg/dL (0.2-1.0); Calcium 9.0 mg/dL (8.7-10.4); Carbon Dioxide 23 mmol/L (20-31); Total Protein 6.1 g/dL (5.7-8.2)
[2025-07-12 06:26] LABS: Glucose 64 mg/dL (74-106)
[2025-07-12 06:27] LABS: Alkaline Phosphatase 41 U/L (46-116); BUN/Creatinine Ratio 7.7 (10.0-20.0); Blood Urea Nitrogen < 5 mg/dL (9-23)
[2025-07-12 06:33] LABS: Anion Gap 10 (5-15); Potassium 3.6 mmol/L (3.5-5.1); Sodium 140 mmol/L (136-145)
[2025-07-12 06:38] LABS: Chloride 107 mmol/L (98-107)
--- NOTE | 2025-07-12 14:11 | DVHPNRES ---
Progress Note Date Seen: Jul 12, 2025 Resident Creating Document: MORALES MENDENHALL RESIDENT Medical Necessity Reason Pt with a Central, PICC or Fol: No Subjective Review of Systems This is a 19-year-old female, at 15 weeks 6 days gestation past medical history of alpha thalassemia, seizure disorder not on any medication presented to ER with a complaint of lower abdominal pain, which started suddenly today associated with experienced brown vaginal discharge, nausea but no vomitus but denies any bright letter clotted but discharge. Patient known her , but did not follow-up with OBGYN. History of sexually transmitted disease untreated. Not taking on any medication and currently denies any fever, SOB, chest pain, headache, dysuria, constipation or any focal weakness. PMHx:Alpha thalassemia, seizure disorder, autoimmune disease (unspecified) PSHx:Denies Medications:None Allergies: Lamotrigine Social History: Lives with family, accompanied by mother, denies tobacco, alcohol, or illicit drug use. Patient seen and evaluated in bedside. Patient currently denies any acute distress including improving lower abdominal pain. Awaiting for urine culture sensitivity. Objective vital signs Vital Sign Date Time Temp Pulse Resp B/P (MAP) Pulse Ox O2 Delivery O2 Flow Rate FiO2 07/12/25 09:00 98.4 83 18 114/64 (81) 100 98.4 07/12/25 08:05 Room Air* 0 21 Total Intake and Output 07/11/25 07/11/25 07/12/25 15:00 23:00 07:00 Intake Total 375 ml Balance 375 ml medications Current Medications Medications Dose Ordered Sig/Migue Route Start Time Stop Time Status Last Admin Dose Admin Sodium Chloride 1,000 ml @ 60 mls/hr [id number] IV 07/11/25 22:45 07/12/25 00:47 60 MLS/HR Ceftriaxone Sodium 50 ml @ 100 mls/hr DAILY@09 IV 07/11/25 22:45 07/12/25 10:21 100 MLS/HR Metronidazole 1 applic HS PV 07/11/25 22:45 Acetaminophen 325 mg Q6HP PRN PO 07/12/25 01:00 Examination General: alert, no acute distress CV: S1-S2 audible, no murmur, regular rhythm Pulm: clear to auscultation bilaterally Abdomen: soft, mild suprapubic tenderness, no rebound or guarding Neuro: alert and oriented, no focal deficits laboratory and microbiology Laboratory Tests 07/12/25 04:50 Test 07/12/25 04:50 Range/Units Serum Glucose 64 L 74-106 mg/dL Problem List/Assessment/Plan Problem List/Assessment/Plan #Complicated urinary tract infection in UA showed turbid appearance, leukocyte esterase 3+, WBC 10, bacteria few Empiric antibiotic ceftriaxone Urine culture pending report Take fluid as tolerated Pain management #Intrauterine at 15 weeks gestation OB-BEAR KEEPER consult ultrasound confirms viable IUP consistent with dates, debt management counselor on importance of care. We will establish care OBGYN after discharge in outpatient #Bacterial vaginosis Continue metronidazole. #Seizure disorder Not currently on antiepileptic therapy. Follow-up outpatient neurology #Alpha thalassemia Hemoglobin stable at 12.4 #Autoimmune disease, unspecified Diagnosis unclear, recommend outpatient follow-up. Goals of care discussion. Full code status. More than 21 minute spent with patient. Case discussed with Dr. Tena. Plan discussed with: Patient, Other (Nurse) Visit Coding STANDARD RES Billing Provider: RIK TENA DO Date of Service if different f: Jul 12, 2025 Common Visit Codes: [id number] INP/OBS CARE(MOD) Secondary Visit Codes: [id number] CARE PLAN 30 MINUTES MORALES MENDENHALL RESIDENT Jul 12, 2025 14:11
[2025-07-12] MEDS: ACETAMINOPHEN 325 MG TAB PO PRN (21:09)
[2025-07-13] VITALS (8 sets, daily range): BP systolic 103–118; BP diastolic 58–71; PULSE 86–111; RESP 16–20; TEMP 98–98.5; O2SAT 98–100
[2025-07-13 05:58] LABS: Hematocrit 32.8 % (36.0-46.0); Hemoglobin 10.8 g/dL (12.2-16.2); Mean Corpuscular Hemoglobin 28.8 pg (28.0-32.0); Mean Corpuscular Volume 87.6 fL (80.0-100.0); Nucleated Red Blood Cells % 0.0 %
[2025-07-13 06:04] LABS: Anion Gap 8 (5-15); Carbon Dioxide 22 mmol/L (20-31); Potassium 3.8 mmol/L (3.5-5.1); Sodium 139 mmol/L (136-145)
[2025-07-13 06:07] LABS: Calcium 8.5 mg/dL (8.7-10.4); Chloride 109 mmol/L (98-107)
[2025-07-13 06:10] LABS: BUN/Creatinine Ratio 9.8 (10.0-20.0); Blood Urea Nitrogen < 5 mg/dL (9-23); Glucose 71 mg/dL (74-106)
[2025-07-13] MEDS ORDERED: CEPH250C PO (16:53)
--- NOTE | 2025-07-13 17:16 | DVHDSRES ---
Discharge Summary Date of Admission Resident Creating Document: MORALES MENDENHALL RESIDENT Jul 11, 2025 at 22:33 Date of Discharge: Jul 13, 2025 Labs/Diagnostic Data: Laboratory Results Test 07/13/25 05:10 07/12/25 04:50 07/11/25 20:43 White Blood Count 8.1 10^3/uL (4.4-10.8) Red Blood Count 3.75 10^6/uL (4.0-5.20) Hemoglobin 10.8 g/dL (12.2-16.2) Hematocrit 32.8 % (36.0-46.0) Mean Corpuscular Volume 87.6 fL (80.0-100.0) Mean Corpuscular Hemoglobin 28.8 pg (28.0-32.0) Mean Corpuscular Hemoglobin Concent 32.9 g/dL (32.0-36.0) Red Cell Distribution Width 12.6 % (11.8-14.3) Platelet Count 236 10^3/uL (140-450) Mean Platelet Volume 8.2 fL (6.9-10.8) Neutrophils (%) (Auto) 63.8 % (37.0-80.0) Lymphocytes (%) (Auto) 27.5 % (10.0-50.0) Monocytes (%) (Auto) 6.5 % (0.0-12.0) Eosinophils (%) (Auto) 1.7 % (0.0-7.0) Basophils (%) (Auto) 0.5 % (0.0-2.0) Neutrophils # (Auto) 5.2 10 ^3/uL (1.6-8.6) Lymphocytes # (Auto) 2.2 10 ^3/uL (0.4-5.4) Monocytes # (Auto) 0.5 10 ^3/uL (0-1.3) Eosinophils # (Auto) 0.1 10 ^3/uL (0-0.8) Basophils # (Auto) 0 10 ^3/uL (0-0.2) Nucleated Red Blood Cells 0.0 % Sodium Level 139 mmol/L (136-145) Potassium Level 3.8 mmol/L (3.5-5.1) Chloride Level 109 mmol/L (98-107) Carbon Dioxide Level 22 mmol/L (20-31) Anion Gap 8 (5-15) Blood Urea Nitrogen < 5 mg/dL (9-23) Creatinine 0.51 mg/dL (0.550-1.02) Glomerular Filtration Rate Calc 138 mL/min (>90) BUN/Creatinine Ratio 9.8 (10.0-20.0) Serum Glucose 71 mg/dL (74-106) Calcium Level 8.5 mg/dL (8.7-10.4) Vitamin D 25-Hydroxy 15.6 ng/mL (30.0-100) Total Bilirubin 0.3 mg/dL (0.2-1.0) Aspartate Amino Transferase (AST) 15 U/L (13-40) Alanine Aminotransferase (ALT) 12 U/L (7-40) Alkaline Phosphatase 41 U/L (46-116) Total Protein 6.1 g/dL (5.7-8.2) Albumin 3.6 g/dL (3.2-4.8) Urine Color Colorless (Yellow) Urine Clarity Turbid (Clear) Urine pH 7.0 (5.0-9.0) Urine Specific [place] 1.021 (1.001-1.035) Urine Protein Trace (Negative) Urine Ketones Negative (Negative) Urine Blood Negative /uL (Negative) Urine Nitrite Negative (Negative) Urine Bilirubin Negative (Negative) Urine Urobilinogen Normal mg/dL (Negative) Urine Leukocyte Esterase 3+ /uL (Negative) Urine RBC 6 /hpf (0 - 4) Urine Microscopic WBC 10 /HPF (0-5) Urine Squamous Epithelial Cells Mod /hpf (<5) Urine Bacteria Few /hpf (None Seen) Urine Mucus Few (None Seen) Urine Yeast (Budding) Occasional /hpf (None Urine Glucose Normal mg/dL (Normal) Other Laboratory Tests 07/13/25 05:10 Brief Hx & Hospital Course: This is a 19-year-old female, at 15 weeks 6 days gestation past medical history of alpha thalassemia, seizure disorder not on any medication presented to ER with a complaint of lower abdominal pain, which started suddenly today associated with experienced brown vaginal discharge, nausea but no vomitus but denies any bright letter clotted but discharge. Patient known her , but did not follow-up with OBGYN. History of sexually transmitted disease untreated. Not taking on any medication and currently denies any fever, SOB, chest pain, headache, dysuria, constipation or any focal weakness. PMHx:Alpha thalassemia, seizure disorder, autoimmune disease (unspecified) PSHx:Denies Medications:None Allergies: Lamotrigine Social History: Lives with family, accompanied by mother, denies tobacco, alcohol, or illicit drug use. Hospital course: Patient admitted due to complicated urinary tract infection in . UA showed turbid appearance, leukocyte esterase 3+, WBC 10, bacteria few. Patient treated IV antibiotic and her symptoms significantly improved. Patient also having brown vaginal discharge which also resolved. Patient denies any acute distress. Mother on bedside and discussed management plan and verbally agree vertebral discussed. Examination 09/11/2024, patient denies any fever, SOB, chest pain, headache, dysuria, abdominal pain or any other acute distress. OBGYN appointment made on 07/20/2025 at 1:00 p.m. p.o. Keflex antibiotic sent to pharmacy and advised patient to resume home medication. Patient is hemodynamically stable for discharge. Patient has received maximum benefit from inpatient treatment. Time was given to answer patient's questions and concerns in layman terms and explained by RN. Patient verbalized understanding and agreed with treatment and follow-up. Patient was recommended to return to ER if he experiences any worsening symptoms not limited to current symptoms. Follow-up with OBGYN appointment made on 07/20/2025 at 1:00 p.m. . Follow up outpatient surgery after getting referral from primary care for elective right-sided inguinal hernia repair. Medications sent to the pharmacy, patient advised to resume home medication. Physical examination Constitutional: No: Fever, Chills, Sweats, Weakness, Malaise, Other Eyes: No: Pain, Vision change, Conjunctivae inflammation, Eyelid inflammation, Other, Redness ENT: No: Ear pain, Ear discharge, Nose pain, Nose discharge, Nose congestion, Mouth pain, Mouth swelling, Throat pain, Throat swelling, Other Respiratory: Shortness of breath; No: Cough, Dry, SOB with excertion, Wheezing, Hemoptysis, Pleuritic Pain, Sputum, Wheezing, Other Cardiovascular: No: Chest Pain, Palpitations, Orthopnea, Paroxysmal Noc. Dyspnea, Edema, Lt Headedness, Other Gastrointestinal: No: Nausea, Vomiting, Abdominal Pain, Diarrhea, Constipation, Melena, Hematochezia, Other Genitourinary: No Dysuria, No Frequency, No Incontinence, No Hematuria, No Retention, No Other Musculoskeletal: No: other, neck pain, shoulder pain, arm pain, back pain, hand pain, leg pain, foot pain Skin: No: Rash, Lesions, Jaundice, Bruising, Other Neurological: No: Weakness, Numbness, Incoordination, Change in speech, Confusion, Seizures, Other More than 21 minute spent with patient. Case discussed with patient, nurse, Dr. Lund. Operations or Procedures ORDERING PHYSICIAN: ELISA LONG DO PROCEDURE(s): OBUS - OB ULTRASOUND COMP GTR 14 WKS REASON: vag spotting, pain ORDER NUMBER(s): [id number], ACCESSION NUMBER(s): [id number] OB ULTRASOUND, LIMITED CLINICAL INDICATION: vag spotting, pain TECHNIQUE: Multiple grayscale ultrasound and M-mode images were obtained of the pelvis for evaluation of intrauterine . COMPARISON: None FINDINGS: A single living fetus is seen in breech presentation. Biparietal diameter: 3.14 cm (15 weeks, 6 days) Head Circumference: 11.91 cm (15 weeks, 6 days) Abdomen Circumference: 10.15 cm (16 weeks, 1 days) Femur Length: 1.9 cm (15 weeks, 4 days) Estimated weight: 138 grams (+/- 21 grams). Placenta: Posterior. Amniotic fluid: Visibly normal. heart rate: 161 beats/min. A complete anatomic survey was not performed on this exam. Cervix is 2.2 cm and closed. IMPRESSION: 1. Single living intrauterine with an estimated gestational age of 15 weeks, 6 days, corresponding to an estimated date of delivery of 12/27/2025. ATED BY: ISABEL DOOLEY MD DICTATED DATE/TIME: 07/11/252046 Condition at Discharge: Stable Final Diagnosis/Problems List #Complicated urinary tract infection in #Intrauterine at 15 weeks gestation #Bacterial vaginosis # Questionable Seizure disorder #Alpha thalassemia #Autoimmune disease, unspecified Discharge Disposition: Home Discharge Instruct/Medications Scheduled Cephalexin (Keflex Capsule), 250 MG PO Q6HR Methylprednisolone (Medrol Dosepak), 4 MG PO UD Nitrofurantoin Monohydrate Mac (Macrobid), 100 MG PO BID Prednisone (Prednisone), 20 MG PO BID Scheduled PRN Ibuprofen (Ibuprofen), 1 TAB PO Q6HP PRN Discharge Statement: "Patient was advised to return to the ER or call 911 if any headaches, dizziness, shortness of breath, chest pain, abdominal pain, bleeding, fevers, or worsening of medical condition. Patient was counseled about treatment plan, medications, possible side effects, patientverbalized understanding. All questions were answered to the best of my ability. This discharge took greater then 30 minutes in planning, reviewing documentation, counseling the patient, and discussing with other team members." ASSESSMENT ASSESSMENT Assessment Visit Coding STANDARD RES Billing Provider: JOSE DE JESUS LUND MD Date of Service if different f: Jul 13, 2025 MORALES MENDENHALL RESIDENT Jul 13, 2025 17:16
--- NOTE | 2025-07-13 21:20 | DVHINCON2 ---
REASON FOR CONSULTATION: and complicated UTI. HISTORY OF PRESENT ILLNESS: The patient is a 19-year-old 1, para 0, with EDC 12/27, admitted for UTI, some vaginal bleeding. The patient was unsure whether she wants to keep the . She had seizures at age 9 years. She is an alpha thalassemia carrier. She also gives a history of autoimmune disease in 2022, which is intermittent. She has had a history of chlamydia treated, and the retest was negative. Denies any alcohol or drug use. Currently, she is not bleeding. She had some brown discharge, but is complaining of urinary symptoms. The patient is on antibiotics. PAST MEDICAL HISTORY: Seizure at age 9, questionable autoimmune disease. PAST SURGICAL HISTORY: None. SOCIAL HISTORY: None for alcohol or drug use. ALLERGIES: No known drug allergies. REVIEW OF SYSTEMS: Consistent with HPI. PHYSICAL EXAMINATION: VITAL SIGNS: Stable, afebrile. HEENT: Within normal limits. CARDIOVASCULAR: Regular rate and rhythm. LUNGS: Clear to auscultation. BREASTS: Symmetrical. No masses. ABDOMEN: Gravid with positive heart. PELVIC: No active bleeding noted. Cervix closed. Uterus 15 weeks size. Adnexa nonpalpable. EXTREMITIES: No clubbing, cyanosis, or edema. IMPRESSION: * Intrauterine at 15 weeks with UTI. * Threatened . RECOMMENDATION: * Pelvic rest. * Treat UTI. * Drink a lot of fluids. * Follow up outpatient once the patient is discharged. DO SUN Johns/OLGA TID: [id number] RECEIPT: [id number]
== END 2025-07-13 18:30 | disposition home or self-care (01) | DRG 833 ==
LOC: EEVIPCON 19:38 → ER 19:38 → OVERFLOW 22:33 → EAST 23:38
PROVIDERS: ADMIT Student in an Organized Health Care Education/Training Program; ATTEND Student in an Organized Health Care Education/Training Program
DX: O23.42 Unspecified infection of urinary tract in pregnancy, second trimester (principal); D56.0 Alpha thalassemia; O23.592 Infection of other part of genital tract in pregnancy, second trimester; G40.909 Epilepsy, unspecified, not intractable, without status epilepticus; M35.9 Systemic involvement of connective tissue, unspecified; O99.352 Diseases of the nervous system complicating pregnancy, second trimester; Z3A.15 15 weeks gestation of pregnancy; O26.892 Other specified pregnancy related conditions, second trimester
CPT/HCPCS: 36415; 76805; 80048; 80053; 81001; 82306; 85025; 86850; 86900; 86901; 87040; 87086; G0378